=== PATIENT | female | born 1990 | race Caucasian/White ===

== ENCOUNTER 2021-11-21 08:33 | Emergency (ER) | payer OTHER, SELFPAY ==
--- NOTE | ~2021-11-21 | CT_ITS ---
EXAMINATION: CT CERVICAL SPINE WITHOUT CONTRAST CLINICAL INFORMATION: Trauma COMPARISON: None TECHNIQUE: Axial images through the cervical spine without contrast. Sagittal and coronal reconstructions on the technologist workstation were performed. This CT examination was performed using dose optimization techniques as appropriate, variously including the following: *Automated exposure control *Adjustment of mA and/or kV according to patient size (this includes techniques or standardized protocols for targeted exams where dose is matched to indication/reason for exam; i.e. extremities or head) *Use of iterative reconstruction technique DLP: 275 mGy-cm FINDINGS: Bone alignment is normal. No fracture or dislocation is seen. There are postsurgical changes with anterior fusion hardware at C4-C5. There is lucency adjacent to the anterior heads of the screws questionable for evidence of loosening. There is irregularity and widening of the C4-C5 disc space. Bone alignment is normal. No fracture or dislocation is seen. There is mild degenerative spondylosis and disc space narrowing at C3-C4 and C5-C6. Prevertebral soft tissues are normal. Visualized lung apices are clear. CT/CT cervical spine wo con IMPRESSION: No fracture or dislocation seen. Postsurgical changes at C4-C5. Lucency adjacent to the anterior heads of the screws questionable for evidence of loosening and widening and irregularity of the C4-C5 disc space. Fleischner guidelines were followed.
--- NOTE | ~2021-11-21 | CT_ITS ---
EXAMINATION: CT FACIAL BONES WITHOUT CONTRAST CLINICAL INFORMATION: Trauma COMPARISON: None TECHNIQUE: Axial images through the facial bones without contrast. Sagittal and coronal reconstructions on the technologist workstation were performed. This CT examination was performed using dose optimization techniques as appropriate, variously including the following: *Automated exposure control *Adjustment of mA and/or kV according to patient size (this includes techniques or standardized protocols for targeted exams where dose is matched to indication/reason for exam; i.e. extremities or head) *Use of iterative reconstruction technique DLP: 254 mGy-cm FINDINGS: No facial bone fracture is seen. There is complete soft tissue opacification of the left maxillary sinus, left ostiomeatal complex region, left frontal and left ethmoid sinuses. There is membranous soft tissue thickening in the floor of the right maxillary sinus. The paranasal sinuses are otherwise clear. Mastoid air cells and middle ears are clear. The temporomandibular joints are normal. The orbits are normal. CT/CT facial bones wo con IMPRESSION: No acute intracranial process or discrete facial bone fracture. Left-sided sinusitis.
--- NOTE | ~2021-11-21 | CT_ITS ---
EXAMINATION: CT HEAD WITHOUT CONTRAST CLINICAL INFORMATION: Fall. Head trauma. COMPARISON: None TECHNIQUE: Contiguous axial imaging was performed from the skull base to vertex without intravenous administration of contrast. This CT examination was performed using dose optimization techniques as appropriate, variously including the following: *Automated exposure control *Adjustment of mA and/or kV according to patient size (this includes techniques or standardized protocols for targeted exams where dose is matched to indication/reason for exam; i.e. extremities or head) *Use of iterative reconstruction technique DLP: 647 mGy-cm FINDINGS: There is no evidence of acute intracranial hemorrhage or territorial infarction. No abnormal mass effect or midline shift is seen. Carr to white matter differentiation is well preserved. No extra-axial fluid collections are identified. The ventricles are normal in size. There is no abnormal attenuation within the brain parenchyma. The osseous structures and soft tissues are normal. There is complete soft tissue opacification of the left frontal, ethmoid and sphenoid sinuses. There is membranous soft tissue thickening in the floor of the right maxillary sinus. CT/CT head/brain wo con IMPRESSION: No acute intracranial findings. Left sinusitis.
[2021-11-21 08:43] VITALS: BP 100/43; BP 138/82; PULSE 88; RESP 12; TEMP 37.3; O2SAT 96; O2SAT 97; BMI 20.5
--- NOTE | 2021-11-21 08:46 | ED_ITS ---
HPI - Fall General Chief Complaint: Fall Stated Complaint: FALL,+HEADSTRIKE,-COLLAR,LAC TO EYE/LIP,EPISTAXIS Time Seen by Provider: 11/21/21 08:39 Source: patient and EMS Mode of arrival: EMS Limitations: altered mental status History of Present Illness HPI Narrative: 31 yo female presents to the ER for evaluation of a fall with headstrike. EMS reports the patient was found on the sidewalk this morning with dried blood on her face, laceration over her right eyebrow, and a fat lip. She was lethargic and appeared to be under the influence of drugs. The fall was witnessed by her girlfriend. She reports at 05:00 she ?fell asleep standing up. ? She fell and hit her face on the stairs. Girlfriend says that she refuse transfer the hospital at that time and they both went to sleep. When they woke up at 08:00 today there was a bleeding laceration of the right eyebrow so the girlfriend called 911. She reportedly was planning to go to the [facility] to get started on methadone or Suboxone today. She reports IV drug use and last use was last night. MD complaint: fall Onset (ago): hour(s) (3-4) Fall from: standing Fall witnessed: yes, by bystander Place fall occurred: street Loss of consciousness: unsure Prolonged down time: no Symptoms prior to fall: none Context: other (heroin use) Location of injury: face and mouth Severity: moderate Severity scale (1-10): 6 Quality: aching Associated symptoms (after fall): headache Related Data Allergies Allergy/AdvReac Type Severity Reaction Status Date / Time No Known Allergies Allergy Unverified 12/21/19 16:55 Review of Systems Review of Systems: Constitutional: No Fever, No Chills ENT/Mouth: No sore throat, No Rhinorrhea, No Swallowing Difficulty, No dental trauma Eyes: + Eye Pain, No Swelling, No Redness Cardiovascular: No Chest Pain, No SOB Respiratory: No Cough, No Sputum Gastrointestinal: No Nausea, No Vomiting,, No abdominal Pain Genitourinary: No Dysuria, No Urinary Frequency, No Hematuria Musculoskeletal: No joint pain, No Myalgias Skin: + Skin Lesions, No rash Neuro: No Weakness, No Numbness, No Dizziness, + Headache Psych: No Anxiety/Panic, No Depression Heme/Lymph: + Bruising, No Lymphadenopathy Endocrine: No Polyuria, No Polydipsia [facility] Social History Social History Advance Directives: No Advance Directives Information Provided: No Physical Exam Vital Signs: Vital Signs: Last Vital Signs Temp 99.2 F 11/21/21 08:43 Pulse 88 11/21/21 08:43 Resp 12 11/21/21 08:43 BP 100/43 L 11/21/21 08:43 Pulse Ox 96 11/21/21 08:43 O2 Del Method 11/21/21 08:43 BMI result Body Mass Index 20.5 Appearance: Lethargic, sleeping, poorly kempt Head/face: 3 cm laceration within the right eyebrow with associated swelling and tenderness. Eyes: Pupils pinpoint. eomi ENT: Pharynx normal. Upper lip with swelling and contusion, superficial abrasion below the nose. Dentition intact. Neck: Normal inspection. Neck supple. no cervical spinal tenderness, normal ROM CVS: Normal heart rate and rhythm. Pulses normal. Respiratory: No respiratory distress. Breath sounds normal. Abdomen: Soft and nontender. +BS x4 Skin: Skin warm and dry. Normal skin color. Normal skin turgor. No rashes. Extremities: No lower extremity edema. Track amaya on bilateral upper extremities. Neuro: Arouses to voice, follows simple commands, moves all extremities, agitated at times Course Course Course Narrative: 31 yo female with history of IVDA presents to the ER with a fall after using IV drugs, she had her face and head on stairs with reported loss of consciousness. Arrival to the ER she is lethargic, appears to be under the influence of drugs. She is maintaining her airway with adequate respirations. Will get CT scans of her head, face, cervical spine. Will require laceration repair of the eyebrow wound. Reevaluation(s) Reevaluation #1: Patient refused lidocaine and suturing of the eyebrow wound several times remained to cleaned, anesthetized and suture the wound however she refused. Ultimately the wound was closed using Dermabond and Steri-Strips. She adamantly declined detox and says she will go tomorrow. She was given references and support information. She is standing outside of her room, demanding to leave. Her girlfriend was asked to leave because she kept nodding out and was about to fall onto the floor. Patient wants to leave noted a girlfriend was asked to leave. Her CT scans were reviewed. No acute fractures. At this time she is stable for discharge. Procedures Laceration Laceration 1: Site: face Side (If applicable): right Size (cm): 3 Description: linear Depth: simple, single layer Pre-repair: wound explored, irrigated extensively and deep structures intact Skin layer closed with: other (dermabond and steri strips (patient refused sutures)) Discharge Plan Discharge Clinical Impression: Intravenous drug abuse, Face lacerations, Contusion of lip Patient Disposition: Home, Self-Care Instructions: Laceration (ED) Additional Instructions: DO NOT PULL OR PEEL OFF THE STERI-STRIPS. Allow them to come off on their own Do not get the wound wet Recommend detox Interventions: ED Discharge Assessment Last Done: 11/21/21 10:44 Discharge Date/Time: 11/21/21 10:46
[2021-11-21] MEDS: Diphth,Pertus(ACell),Tet Adult 0.5 ML SYRINGE IM (08:57)
[2021-11-21] MEDS: Lidocaine HCl 1 % MPF 5 ML VIAL SUBCUT (08:58)
--- NOTE | 2021-11-21 09:50 | PC.NURSE ---
CARE team to bedside. VSS and awakes to touch. Per pt and and visitor not interested in detox at this time and will follow up with [facility]. Laceration to right eyebrow cleansed and pt to CT scan, results pending. Tetanus given to left deltoid as charted.
--- NOTE | 2021-11-21 11:44 | MHC.RECOVRN ---
Briefly met with pt prior to discharge. Pt somnolent, unable to stay awake to have discussion. Per visitor, Diane, at bedside (who was also barely able to stay awake for discussion), pt and visitor are planning to go to [facility] after discharge from [facility] to discuss tx options and harm reduction. Diane declined assistance from t/w for self and pt.
== END 2021-11-21 10:46 | disposition home or self-care (01) ==
PROVIDERS: Emergency Provider Student in an Organized Health Care Education/Training Program
DX: S01.111A Laceration without foreign body of right eyelid and periocular area, initial encounter (principal); R51.9 Headache, unspecified; F11.19 Opioid abuse with unspecified opioid-induced disorder; M54.2 Cervicalgia; R55 Syncope and collapse; W01.0XXA Fall on same level from slipping, tripping and stumbling without subsequent striking against object, initial encounter; Y93.9 Activity, unspecified; Y92.9 Unspecified place or not applicable; Y99.9 Unspecified external cause status; Z79.899 Other long term (current) drug therapy
CPT/HCPCS: 12013; 70450; 70486; 72125; 90471; 90715; 99284

== ENCOUNTER 2022-12-24 18:45 | Emergency (ER) | payer OTHER, SELFPAY ==
--- NOTE | ~2022-12-24 | XR_ITS ---
EXAMINATION: XR FOOT, LEFT CLINICAL INFORMATION: Pain COMPARISON: None available. TECHNIQUE: AP, lateral, and oblique views of the left foot. FINDINGS: The bone mineralization is normal. No fracture. Alignment is anatomic. Joint spaces are maintained. There is soft tissue swelling along the dorsum. XR/XR foot LT min 3V IMPRESSION: No acute osseous abnormality. Soft tissue swelling along the dorsum of the foot.
[2022-12-24 19:17] VITALS: BP 108/52; PULSE 92; RESP 16; TEMP 37.5; O2SAT 98; BMI 18.2
--- NOTE | 2022-12-24 19:18 | ED.GENADULT ---
HPI - General Adult General Chief complaint: Extremity Injury, Lower Stated complaint: infected fingers and feet Time Seen by Provider: 12/24/22 20:26 Source: patient Limitations: no limitations History of Present Illness HPI narrative: 32-year-old female presents with approximate 2-3 weeks of left great toe and right heel pain, blister formation in no purulent drainage. Patient has associated pain that is severe in nature. Worse with ambulation. The pain does not radiate. She has been trying to keep per wounds clean bandage. Denies any direct injury. I she has had subjective fever and chills. She denies any additional complaints at this time. Related Data Previous Rx's Medication Instructions Recorded doxycycline monohydrate 100 mg 100 mg PO BID #20 tabs 12/24/22 tablet Allergies Allergy/AdvReac Type Severity Reaction Status Date / Time No Known Allergies Allergy Unverified 12/21/19 16:55 Review of Systems Review of Systems: CONSTITUTIONAL: Denies weight loss, fever and chills. HEENT: Denies changes in vision and hearing. RESPIRATORY: Denies SOB and cough. CV: Denies palpitations no CP. GI: Denies abdominal pain, nausea, vomiting and diarrhea. : Denies dysuria and urinary frequency. MSK: Denies myalgia and joint pain. SKIN: Denies rash and pruritus. NEUROLOGICAL: Denies headache and syncope. PSYCHIATRIC: + anxiety. All other ROS are negative unless in HPI PMFSH Social History Social History Alcohol intake: never Smoked in Last 30 Days: Yes Use of substances other than those prescribed or required for medical reasons: Yes Advance Directives: No Advance Directives Information Provided: Yes Patient : No Physical Exam ED Vital Signs: Vital Signs - 24 hr 12/24/22 19:17 12/24/22 20:06 Temperature 99.5 F 100.6 F H Pulse Rate 92 95 Respiratory Rate 16 20 Blood Pressure 108/52 L 115/60 Pulse Oximetry 98 99 Oxygen Delivery Method Room Air BMI result Body Mass Index 18.2 GEN: Well developed, + acute distress, alert, oriented HEENT: Normocephalic, atraumatic, normal external ears, nose appears normal Eyes: Normal to appearance Neck: Supple, no lymphadenopathy Respiratory: Talks in complete sentences, no respiratory distress Extremities: No clubbing cyanosis or edema, cellulitic changes to the left 1st and 2nd toe with pustule, possible paronychia, skin sloughing consistent with a blister rupture on right heel Neurologic: No focal neurologic deficits, cranial nerves 2-12 intact, gait normal Skin: No rash Course Course Course Narrative: This is a rapid medical exam: Additional HPI, ROS, PE not included below will be deferred to primary provider. Patient is a 32-year-old female presenting to the emergency department with concern for infection to both feet. States she is currently living on the [address] and walks frequently, has multiple wounds to feet. Reports chills/feeling hot. Large blister noted to plantar aspect of right foot, erythema, swelling and warmth noted to left foot, worst in area of great toe. Purulent drainage from left great toe. Patient states that she feels symptoms might be related to injecting xylazine and dope. When asked to clarify, patient states I just take whatever is in the bag. States she only injects into her arms, does not inject into feet/toes. VS WNL in triage, temp 99.5. Plan: labs, x-ray Medications Administered Discontinued Medications Generic Name Dose Route Start Last Admin Trade Name Edy PRN Reason Stop Dose Admin Acetaminophen 650 mg 12/24/22 19:27 12/24/22 20:04 Acetaminophen 325 Mg Tablet PO 12/24/22 19:28 650 mg ONCE ONE Administration Medical Decision Making Medical Decision Making [facility] Narrative: 32-year-old female presents with left great toe pain, redness, swelling as well as right heel pain. Symptoms started 2-3 weeks ago with them progressively getting worse. She has been trying to manage this with topical treatment. This is not been improving her symptoms. Examination is consistent with cellulitis particularly over the left great toe and 2nd digit. There is a possible paronychia and pustule. I recommended an incision and drainage with a digital block however patient refused. Instead, I will go ahead and treat the patient with oral antibiotics and analgesia. She can follow up within a couple days for re-evaluation. For worsening symptoms, she will follow up in the emergency department. Home her girlfriend is present during this conversation. It should also be noted that she had significant anxiety associated with her symptoms. Differential diagnosis includes cellulitis, paronychia, pustule Differential Diagnosis Differential Diagnoses: The differential diagnosis associated with the presentation includes (See above) Lab Data [facility] Lab Attestation statement: I reviewed the patient's lab results. 12/24/22 20:17 12/24/22 20:17 Labs: Lab Results 12/24/22 Range/Units 20:17 WBC 12.3 H (4.8-10.8) X10*3/uL RBC 3.59 L (4.20-5.50) X10*6/uL Hgb 9.7 L (12.0-16.0) g/dl Hct 29.6 L (37.0-47.0) % MCV 82.5 (80.0-98.0) fL MCH 27.0 (27.0-33.0) pg MCHC 32.8 (31.0-35.0) g/dl RDW 13.6 (11.0-16.0) % Plt Count 300 (160-400) X10*3/uL MPV 8.3 L (9.4-12.3) fL Immature Gran % (Auto) 0.4 (0.0-0.4) % Neut % (Auto) 81.9 H (45-73) % Lymph % (Auto) 11.5 L (20-40) % [place] % (Auto) 5.8 (2-11) % Eos % (Auto) 0.2 (0-4) % Baso % (Auto) 0.2 (0-2) % Lymph # (Auto) 1.4 (1.2-4.9) X10*3/uL [place] # (Auto) 0.7 (0.1-1.2) X10*3/uL Eos # (Auto) 0.0 (0.0-0.4) X10*3/uL Baso # (Auto) 0.0 (0.0-0.2) X10*3/uL Abs Immat Gran (auto) 0.05 H (0.00-0.03) X10*3/uL Absolute Neuts (auto) 10.1 H (2.0-8.3) x10*3/uL Absolute Nucleated RBC 0.000 (0.0-0.012) X10*3/uL Nucleated RBC % (auto) 0.0 (0.0-0.2) /100WBC Independent Interpretation I performed an independent interpretation of an: Plain X-Ray (No osseous abnormality) Radiology Impression Discussion of test interpretation with radiology: I have reviewed the radiologist's reading. Radiologist Impression: XR/XR foot LT min 3V IMPRESSION: No acute osseous abnormality. Soft tissue swelling along the dorsum of the foot. Dictated By: Pratik Robison Signed By: <Electronically signed by Pratik Robison in OV> 12/24/222006 Independent Historian Clinical information obtained from an independent historian. History obtained from or confirmed by: Friend Prescription Management I considered prescription management with: Pain Medication and Antibiotic Discharge Plan Discharge Clinical Impression: Cellulitis of great toe Patient Disposition: Home, Self-Care Instructions: Paronychia (ED), Cellulitis (ED) Additional Instructions: I am recommending follow-up in 2-3 days for re-evaluation of wounds. He may stop off had any urgent care, emergency department or local health care clinic. Please make sure to take your antibiotic as prescribed. Additionally, he may take Tylenol ibuprofen for pain relief. Prescriptions: New doxycycline monohydrate 100 mg tablet 100 mg PO BID Qty: 20 0RF Referrals: [facility] [Provider Group] - 3 days
[2022-12-24] MEDS: Acetaminophen 325 MG TABLET 650 MG PO (20:04)
[2022-12-24 20:06] VITALS: BP 115/60; PULSE 95; RESP 20; TEMP 38.1; O2SAT 99
[2022-12-24 20:20] LABS: MANUAL DIFF FLAG NO
[2022-12-24 20:23] LABS: Basophils Percent Auto 0.2 % (0-2); Eosinophils Percent Auto 0.2 % (0-4); Hematocrit 29.6 % (37.0-47.0); Hemoglobin 9.7 g/dl (12.0-16.0); Imm Gran Abs Auto 0.05 X10*3/uL (0.00-0.03); Imm Gran Pct Auto 0.4 % (0.0-0.4); Lymphocytes Absolute Auto 1.4 X10*3/uL (1.2-4.9); Lymphocytes Percent Auto 11.5 % (20-40); Mean Corpuscular HGB Conc 32.8 g/dl (31.0-35.0); Mean Corpuscular Volume 82.5 fL (80.0-98.0); Mean Platelet Volume 8.3 fL (9.4-12.3); Monocytes Absolute Auto 0.7 X10*3/uL (0.1-1.2); Monocytes Percent Auto 5.8 % (2-11); Neutrophils Absolute Auto 10.1 x10*3/uL (2.0-8.3); Neutrophils Percent Auto 81.9 % (45-73); Platelet Count 300 X10*3/uL (160-400); Red Blood Count 3.59 X10*6/uL (4.20-5.50); Red Cell Distribution Width 13.6 % (11.0-16.0); White Blood Count 12.3 X10*3/uL (4.8-10.8)
[2022-12-24 20:36] LABS: Alanine Aminotransferase 19 U/L (0-31); Albumin Level 3.4 g/dL (3.5-5.0); Alkaline Phosphatase 75 U/L (39-117); Anion Gap 11 (12-20); Aspartate Amino Transferase 33 U/L (5-31); Bilirubin Total 0.3 mg/dL (0.0-1.0); Blood Urea Nitrogen 13 mg/dL (9-16); Calcium 8.5 mg/dL (8.4-10.2); Carbon Dioxide 27 mmol/L (22-29); Chloride 101 mmol/L (96-108); Creatinine Clr Calc Pharmacy 101.7; Estimated Glomerular Filt Rate > 60; Glucose Random 102 mg/dL (60-115); Potassium 4.2 mmol/L (3.3-5.1); Sodium 135 mmol/L (135-145); Total Protein 6.9 g/dL (6.5-8.0)
[2022-12-24] MEDS: Acetaminophen 325 MG TABLET 975 MG PO (21:03)
[2022-12-24] MEDS: Ketorolac Tromethamine 15 MG/ML VIAL IVPUSH (21:03)
[2022-12-24] MEDS: Doxycycline Monohydrate 100 MG CAPSULE PO (21:03)
== END 2022-12-24 21:18 | disposition home or self-care (01) ==
PROVIDERS: Registered Nurse Emergency; Emergency Provider Emergency Medicine
DX: L03.032 Cellulitis of left toe (principal); M79.672 Pain in left foot
CPT/HCPCS: 36415; 73630; 80053; 85025; 96372; 99284; J1885